=== PATIENT | male | born 1980 | race Caucasian/White ===

== ENCOUNTER 2022-12-06 09:27 | Day surgery (SDC) | payer OTHER ==
[~2022-12-06] VITALS: Ht 177.8 cm; Wt 98.8 kg
[~2022-12-06 09:27] MED LIST: BUPROPION HCL150 MG PO; CHANTIX1 MG PO; DEPO-TESTOS200 MG/M1 IM; FLECAINIDE150 MG PO; FOLIC ACID1 MG PO; GINGER ROOT550 MG PO; LORTAB 5/500 501 TAB PO; METHOTREXATE SO20 MG PO; MOBIC7.5 M1 PO; MULTAQ400 MG PO; NAPROSYN500 MG PO; OMEPRAZOLE D/R20 MG PO; PREDNISONE20 M1 PO; TESSALON PERLE200 MG PO; XANAX0.5 MG PO
[2022-12-06] MEDS ORDERED: TREXALL5 MG PO (10:04)
[2022-12-06] MEDS ORDERED: ZOLOFT 100MG100 MG PO (10:05)
[2022-12-06] MEDS ORDERED: CARTIA XT180 MG PO (10:06)
[2022-12-06] MEDS ORDERED: DESYREL 100MG100 MG PO (10:07)
[2022-12-06] MEDS ORDERED: MINIPRESS 1M1 MG/CAP PO (10:07)
[2022-12-06] MEDS ORDERED: MELATONIN1 MG PO (10:08)
[2022-12-06] MEDS ORDERED: ZOCOR 10MG10 MG PO (10:08)
[2022-12-06 11:30] VITALS: BP 112/67; PULSE 72; TEMP 98.2
[2022-12-06 11:45] VITALS: BP 106/78; PULSE 72
[2022-12-06 11:55] VITALS: BP 112/83; PULSE 68
--- NOTE | 2022-12-06 12:00 | NUR ---
1130 RETURNS TO ROOM 5 PER CART. AWAKE, ALERT. RESP UNLABORED. AMBULATES TO RECLINER WITH STANDBY ASSIST. ABD SOFT. DENIES NAUSEA OR ABD PAIN. VITAL SIGNS OBTAINED. CALL LIGHT AT SIDE. IN ROOM. 1137 DR MITCHELL HERE TO VISIT WITH PATIENT. 1144 DISCHARGE INSTRUCTIONS REVIEWED. PATIENT VERBALIZES UNDERSTANDING. COPY PROVIDED IN DISCHARGE FOLDER. 1150 TOLERATES PO JUICE AND MUFFIN WITHOUT NAUSEA 1156 DRESSES SELF
[2022-12-06 12:05] VITALS: BP 120/84; PULSE 78; TEMP 98.5
--- NOTE | 2022-12-06 12:40 | NUR ---
0965 PT AMBULATORY TO BAY 5 WITH STEADY GAIT, BREATHING EVEN AND UNLABORED. PT IS ALERT AND ORIENTED. CONSENTS REVIEWED AND SIGNED BY PT. IV ESTABLISHED. LR INFUSING VIA GRAVITY AT KVO. CALL LIGHT IN REACH. WARM BLANKET PROVIDED TO PT. PT'S IN .
== END 2022-12-06 12:02 | disposition home or self-care (01) ==
LOC: SDCO 09:27
DX: K92.1 Melena (principal); K59.00 Constipation, unspecified; K64.1 Second degree hemorrhoids; K57.30 Diverticulosis of large intestine without perforation or abscess without bleeding; G47.33 Obstructive sleep apnea (adult) (pediatric); F17.290 Nicotine dependence, other tobacco product, uncomplicated; Z99.81 Dependence on supplemental oxygen; Z79.899 Other long term (current) drug therapy
CPT/HCPCS: J2704; J7120